=== PATIENT | female | born 1965 | race Caucasian/White ===

== ENCOUNTER 2020-06-16 14:24 | Emergency (ER) | payer MEDICARE ==
[2020-06-16] MEDS ORDERED: Ativan 0.5 MG PO ONE (14:31)
[2020-06-16] MEDS ORDERED: Ativan 1 MG ONE (14:41)
[2020-06-16] MEDS ORDERED: Ativan 1 MG PO ONE (14:44)
--- NOTE | 2020-06-16 14:55 | XRAY ---
Indication: Confusion. Vomiting. Multiple contiguous axial images obtained through the head without contrast. Comparison: None Normal appearing brain parenchyma, ventricles, and bony calvarium. Visualized paranasal sinuses and mastoid air cells are clear. Impression: Normal CT head without contrast exam.
[2020-06-16 14:57] LABS: Absolute Neutrophil Ct (ANC) 5.55 (1.4-6.9); BASOPHIL % 0.3 % (0.0-0.4); Basophil (Absolute #) 0.03 (0-0.4); Eosinophil % 3.3 % (0.00-5.0); Eosinophil (Absolute #) 0.33 (0-0.5); Hematocrit 40.2 % (35-47); Hemoglobin 12.4 gm/dl (12.0-16.0); Lymphocyte (Absolute #) 3.44 (1.0-4.6); Lymphocytes % 34.9 % (24.0-44.0); Mean Cell Volume 94.8 fl (78-100); Mean Corpuscular Hemoglobin 29.2 pg (26-32); Mean Corpuscular Hgb Concent. 30.8 g/dl (32-36); Mean Platelet Volume 8.1 fl (7.5-11.0); Monocyte (Absolute #) 0.52 (0.0-1.3); Monocytes % 5.3 % (0.0-12.0); Neutrophil % 56.2 % (36.0-66.0); Platelet Count 256 K/mm3 (150-450); Red Blood Count 4.24 M/mm3 (4.1-5.4); Red Cell Distribution Width 13.2 % (11.5-14.0); White Blood Count 9.9 K/mm3 (4.0-10.5)
--- NOTE | 2020-06-16 14:57 | XRAY ---
Indication: Vomiting. Pneumonia. Comparison: February 26, 2018. PA/lateral chest again demonstrates normal heart and lungs with incidental right base calcified granuloma. Bony thorax intact again with distal left clavicle resection. Impression: Continued nonacute chest with chronic features.
--- NOTE | 2020-06-16 15:04 | ERPHSYRPT ---
- History of Present Illness Time Seen by Provider: 06/16/20 14:27 Source: patient Exam Limitations: no limitations Patient Subjective Stated Complaint: pt here for dizziness, abd pain after having a nap today. she states she feels better after having a BM, Triage Nursing Assessment: pt alert, arrived per ambulance,face mask in place, skin w/d/p. moves all ext well Physician History: Patient is here for an episode of dizziness and abdominal pain. Patient states that it started after taking a nap this morning. Patient states that she went to the [facility] around 7:15 AM. She went home. She was spending time with her cat fell asleep. Woke up with sudden onset of dizziness with some abdominal pain. No falls no trauma. No fever no chills. Patient denies any Covid-like symptoms. She states that she feels improved now. Had some nonspecific abdominal pain. States that she took a large bowel movement and felt improved. Patient does appear to have a history of mild mental delay. She is at her baseline per nursing staff. Location:generalized Quality: dizziness, abdominal cramping Radiation: none Severity: moderated Duration: today Timing: suddenly after waking up after nap Modifying factors/associated signs and symptoms: feels improved after bowel movement and rest Allergies/Adverse Reactions: No Known Drug Allergies Allergy (Verified 08/19/15 20:56) Home Medications: Citalopram Hydrobromide [Citalopram HBr] 20 mg PO DAILY 05/04/13 [History] Pravastatin Sodium 20 mg PO HS 05/04/13 [History] Polyethylene Glycol 3350 17 gm [Miralax Powder 17GM PACKET] 17 gm PO DAILY PRN PRN 05/31/14 [History] Cyanocobalamin 100 Mcg [Vitamin B-12 100 Mcg] 100 mcg PO DAILY 05/16/20 [History] Metformin HCl 500 mg [Glucophage 500 MG] 500 mg PO DAILY 05/16/20 [History] Ondansetron ODT 4 MG [Zofran Odt 4 mg] 4 mg PO Q6H PRN PRN 05/16/20 [History] estradioL [Estradiol] 1 mg PO DAILY 05/16/20 [History] Hx Tetanus, Diphtheria Vaccination/Date Given: Yes Hx Influenza Vaccination/Date Given: Yes Hx Pneumococcal Vaccination/Date Given: No Immunizations Up to Date: Yes Travel Risk - International Travel Have you traveled outside of the country in past 3 weeks: No - Coronavirus Screening Are you exhibiting any of the following symptoms?: No Close contact with a COVID-19 positive Pt in past 14-21 Days: No - Review of Systems Constitutional: No Fever, No Chills Eyes: No Symptoms Ears, Nose, & Throat: No Symptoms Respiratory: No Cough, No Dyspnea Cardiac: No Chest Pain, No Edema, No Syncope Abdominal/Gastrointestinal: Abdominal Pain, No Nausea, No Vomiting, No Diarrhea Genitourinary Symptoms: No Dysuria Musculoskeletal: No Back Pain, No Neck Pain Skin: No Rash Neurological: Dizziness, No Focal Weakness, No Sensory Changes Psychological: No Symptoms Endocrine: No Symptoms All Other Systems: Reviewed and Negative - Past Medical History Pertinent Past Medical History: Yes Neurological History: Peripheral Neuropathy ENT History: No Pertinent History Cardiac History: High Cholesterol, Hypertension Respiratory History: Sleep Apnea Endocrine Medical History: No Pertinent History Musculoskeletal History: No Pertinent History GI Medical History: Diverticulitis History: No Pertinent History Psycho-Social History: Anxiety Female Reproductive Disorders: Endometriosis Other Medical History: kidney removed 2012, - Past Surgical History Past Surgical History: Yes Neuro Surgical History: No Pertinent History Cardiac: No Pertinent History Respiratory: No Pertinent History Gastrointestinal: Cholecystectomy Genitourinary: No Pertinent History Musculoskeletal: No Pertinent History Female Surgical History: Hysterectomy Other Surgical History: lt kidney removed, shoulder repair, bladder tumor remov ed- dr sun urologist, right knee repair, LEFTKIDNEY REMOVED - Social History Smoking Status: Never smoker Exposure to second hand smoke: No Drug Use: none Patient Lives Alone: Yes - Female History Hx Last Menstrual Period: post - Nursing Vital Signs Nursing Vital Signs: Initial Vital Signs Temperature 96.8 F 06/16/20 14:24 Pulse Rate 107 H 06/16/20 14:24 Respiratory Rate 18 06/16/20 14:24 Blood Pressure 127/99 06/16/20 14:24 O2 Sat by Pulse Oximetry 99 06/16/20 14:24 Pain Scale Pain Intensity 0 - Physical Exam General Appearance: no apparent distress, alert Eye Exam: PERRL/EOMI, eyes nml inspection Ears, Nose, Throat Exam: normal ENT inspection, TMs normal, pharynx normal, moist mucous membranes Neck Exam: normal inspection, non-tender, supple, full range of motion Respiratory Exam: normal breath sounds, lungs clear, No respiratory distress Cardiovascular Exam: regular rate/rhythm, normal heart sounds, normal peripheral pulses Gastrointestinal/Abdomen Exam: soft, normal bowel sounds, No tenderness, No mass Back Exam: normal inspection, normal range of motion, No CVA tenderness, No vertebral tenderness Extremity Exam: normal inspection, normal range of motion, pelvis stable Neurologic Exam: alert, oriented x 3, cooperative, normal mood/affect, nml cerebellar function, nml station & gait, sensation nml, No motor deficits Skin Exam: normal color, warm, dry, No rash Lymphatic Exam: No adenopathy SpO2 Interpretation: normal SpO2: 99 Comments: 06/16/20 15:02 Motor: There is no pronator drift of out-stretched arms. Muscle bulk and tone are normal. Strength is full bilaterally. Reflexes: Reflexes are 2+ and symmetric at the biceps, triceps, knees, and ankles. Plantar responses are flexor. Sensory: Light touch sense are intact in bilateral upper and lower extremities. There is no sign of neglect. Coordination: Rapid alternating movements are intact. There is no dysmetria on [id number] and [id number]. There are no abnormal or extraneous movements. Romberg is absent. Gait/Stance: Posture is normal. Gait is steady with normal steps, base, arm swing, and turning. Heel and toe walking are normal. Tandem gait is normal No obvious deformity, sensation intact, 2+ capillary refill, 2 point tactile discrimination intact. 5 out of 5 strength. Full range of motion without pain. Compartments are soft, nontender. Overlying skin shows no tenting, bruising, ecchymosis. - Course Nursing assessment & vital signs reviewed: Yes EKG Interpreted by Me: Sinus Rhythm Ordered Tests: Active Orders 24 hr Category Date Time Status Clean Catch Urine Specimen STAT Care 06/16/20 14:29 Active EKG-ER Only STAT Care 06/16/20 14:29 Active IV Insertion STAT Care 06/16/20 14:29 Active POCT Glucose Check STAT Care 06/16/20 14:29 Active CHEST 2 VIEWS (PA AND LAT) Stat Exams 06/16/20 14:29 Completed HEAD WITHOUT CONTRAST [CT] Stat Exams 06/16/20 14:29 Completed ACETAMINOPHEN Stat Lab 06/16/20 14:50 Completed CBC W DIFF Stat Lab 06/16/20 14:50 Completed CMP Stat Lab 06/16/20 14:50 Completed ETHYL ALCOHOL Stat Lab 06/16/20 14:50 Completed LITHIUM Stat Lab 06/16/20 14:50 Completed SALICYLATE Stat Lab 06/16/20 14:50 Completed TROPONIN Q3H Lab 06/16/20 14:50 Completed TROPONIN Q3H Lab 06/16/20 17:45 Ordered TROPONIN Q3H Lab 06/16/20 20:45 Ordered TROPONIN Q3H Lab 06/16/20 23:45 Ordered UA W/RFX UR CULTURE Stat Lab 06/16/20 15:32 Completed Urine Triage Profile Stat Lab 06/16/20 15:32 Completed Medication Summary Discontinued Medications Generic Name Dose Route Start Last Admin Trade Name Freq PRN Reason Stop Dose Admin Lorazepam 0.5 mg 06/16/20 14:31 06/16/20 14:44 Ativan 0.5 Mg PO 06/16/20 14:32 Not Given STAT ONE Lorazepam Confirm 06/16/20 14:41 Ativan 1 Mg Administered 06/16/20 14:42 Dose 1 mg .ROUTE .STK-MED ONE Lorazepam 0.5 mg 06/16/20 14:44 06/16/20 14:45 Ativan 1 Mg PO 06/16/20 14:45 0.5 mg STAT ONE Administration Lab/Rad Data: Laboratory Result Diagrams 06/16/20 14:50 06/16/20 14:50 Laboratory Results 06/16/20 06/16/20 06/16/20 Range/Units 15:32 15:32 14:50 WBC (4.0-10.5) K/mm3 RBC (4.1-5.4) M/mm3 Hgb (12.0-16.0) gm/dl Hct (35-47) % MCV (78-100) fl MCH (26-32) pg MCHC (32-36) g/dl RDW (11.5-14.0) % Plt Count (150-450) K/mm3 MPV (7.5-11.0) fl Gran % (36.0-66.0) % Eos # (Auto) (0-0.5) Absolute Lymphs (auto) (1.0-4.6) Absolute Monos (auto) (0.0-1.3) Lymphocytes % (24.0-44.0) % Monocytes % (0.0-12.0) % Eosinophils % (0.00-5.0) % Basophils % (0.0-0.4) % Absolute Granulocytes (1.4-6.9) Basophils # (0-0.4) Sodium (137-145) mmol/L Potassium (3.5-5.1) mmol/L Chloride (98-107) mmol/L Carbon Dioxide (22-30) mmol/L Anion Gap (5-15) MEQ/L BUN (7-17) mg/dL Creatinine (0.52-1.04) mg/dL Estimated GFR ML/MIN Glucose (74-106) mg/dL Calcium (8.4-10.2) mg/dL Total Bilirubin (0.2-1.3) mg/dL AST (14-36) U/L ALT (0-35) U/L Alkaline Phosphatase (38-126) U/L Troponin I < 0.012 (0.000-0.034) ng/mL Serum Total Protein (6.3-8.2) g/dL Albumin (3.5-5.0) g/dL Urine Color YELLOW (YELLOW) Urine Appearance CLEAR (CLEAR) Urine pH 6.0 (5-6) Ur Specific [place] 1.008 (1.005-1.025) Urine Protein NEGATIVE (Negative) Urine Ketones NEGATIVE (NEGATIVE) Urine Blood MODERATE (0-5) Bennett/ul Urine Nitrite NEGATIVE (NEGATIVE) Urine Bilirubin NEGATIVE (NEGATIVE) Urine Urobilinogen NEGATIVE (0-1) mg/dL Ur Leukocyte Esterase NEGATIVE (NEGATIVE) Urine WBC (Auto) 0-2 (0-5) /HPF Urine RBC (Auto) 0-2 (0-2) /HPF U Epithel Cells (Auto) NONE (FEW) /HPF Urine Bacteria (Auto) FEW (NEGATIVE) /HPF Urine Culture Reflexed NO (NO) Urine Glucose NEGATIVE (NEGATIVE) mg/dL Salicylates (2-20) mg/dL Urine Opiates Level NEGATIVE (NEGATIVE) Ur Methadone NEGATIVE (NEGATIVE) Acetaminophen (10-30) ug/ml Urine Barbiturates NEGATIVE (NEGATIVE) Ur Phencyclidine (PCP) NEGATIVE (NEGATIVE) Urine Amphetamine NEGATIVE (NEGATIVE) U Benzodiazepine Level NEGATIVE (NEGATIVE) [place] (0.60-1.20) mmol/L Urine Cocaine NEGATIVE (NEGATIVE) Urine Marijuana (THC) NEGATIVE (NEGATIVE) Ethyl Alcohol (0-10) mg/dL 06/16/20 06/16/20 06/16/20 Range/Units 14:50 14:50 14:50 WBC 9.9 (4.0-10.5) K/mm3 RBC 4.24 (4.1-5.4) M/mm3 Hgb 12.4 (12.0-16.0) gm/dl Hct 40.2 (35-47) % MCV 94.8 (78-100) fl MCH 29.2 (26-32) pg MCHC 30.8 L (32-36) g/dl RDW 13.2 (11.5-14.0) % Plt Count 256 (150-450) K/mm3 MPV 8.1 (7.5-11.0) fl Gran % 56.2 (36.0-66.0) % Eos # (Auto) 0.33 (0-0.5) Absolute Lymphs (auto) 3.44 (1.0-4.6) Absolute Monos (auto) 0.52 (0.0-1.3) Lymphocytes % 34.9 (24.0-44.0) % Monocytes % 5.3 (0.0-12.0) % Eosinophils % 3.3 (0.00-5.0) % Basophils % 0.3 (0.0-0.4) % Absolute Granulocytes 5.55 (1.4-6.9) Basophils # 0.03 (0-0.4) Sodium 136 L (137-145) mmol/L Potassium 3.8 (3.5-5.1) mmol/L Chloride 97 L (98-107) mmol/L Carbon Dioxide 30 (22-30) mmol/L Anion Gap 12.6 (5-15) MEQ/L BUN 14 (7-17) mg/dL Creatinine 0.77 (0.52-1.04) mg/dL Estimated GFR > 60.0 ML/MIN Glucose 140 H (74-106) mg/dL Calcium 9.8 (8.4-10.2) mg/dL Total Bilirubin 0.40 (0.2-1.3) mg/dL AST 24 (14-36) U/L ALT 18 (0-35) U/L Alkaline Phosphatase 119 (38-126) U/L Troponin I (0.000-0.034) ng/mL Serum Total Protein 7.8 (6.3-8.2) g/dL Albumin 4.5 (3.5-5.0) g/dL Urine Color (YELLOW) Urine Appearance (CLEAR) Urine pH (5-6) Ur Specific [place] (1.005-1.025) Urine Protein (Negative) Urine Ketones (NEGATIVE) Urine Blood (0-5) Bennett/ul Urine Nitrite (NEGATIVE) Urine Bilirubin (NEGATIVE) Urine Urobilinogen (0-1) mg/dL Ur Leukocyte Esterase (NEGATIVE) Urine WBC (Auto) (0-5) /HPF Urine RBC (Auto) (0-2) /HPF U Epithel Cells (Auto) (FEW) /HPF Urine Bacteria (Auto) (NEGATIVE) /HPF Urine Culture Reflexed (NO) Urine Glucose (NEGATIVE) mg/dL Salicylates < 1.0 L (2-20) mg/dL Urine Opiates Level (NEGATIVE) Ur Methadone (NEGATIVE) Acetaminophen < 10 L (10-30) ug/ml Urine Barbiturates (NEGATIVE) Ur Phencyclidine (PCP) (NEGATIVE) Urine Amphetamine (NEGATIVE) U Benzodiazepine Level (NEGATIVE) [place] < 0.2 L (0.60-1.20) mmol/L Urine Cocaine (NEGATIVE) Urine Marijuana (THC) (NEGATIVE) Ethyl Alcohol < 10 (0-10) mg/dL - Progress Progress: improved Progress Note: 06/16/20 15:03 STEMI, head bleed, infection, UTI, stroke, anxiety - We'll obtain basic labs, fluids, EKG, troponin, chest x-ray - I feel comfortable with one time negative troponin given symptoms have impro fahad and started greater then 6 hours ago. - EKG shows no ST changes - my read. See full read below. - O2 saturations consistently greater than 95%. - CXR shows no pneumonia, pneumothorax - my read 06/16/20 16:[address] is negative for new stroke, head bleed. Overall patient feeling improved. She states that she is at her baseline. At this point time will discharge patient home. Return here for new or changing symptoms. Plan of care was discussed with patient and all questions answered. The patient is agreeable to be discharged home and both verbal and printed discharge instructions were provided.The patient agreed to seek outpatient follow up as discussed. The patient was given strict instructions to return to the emergency department for worsening symptoms or any other emergent concerns. The patient verbalized understanding. Counseled pt/family regarding: lab results, diagnosis, need for follow-up, rad results - Departure Departure Disposition: Home Clinical Impression: Dizziness, Nausea Condition: Stable Critical Care Time: No Referrals: STACEY ESPINO [Primary Care Provider] -
[2020-06-16 15:11] LABS: ACETAMINOPHEN < 10 ug/ml (10-30); ALBUMIN 4.5 g/dL (3.5-5.0); ALKALINE PHOSPHATASE 119 U/L (38-126); ANION GAP 12.6 MEQ/L (5-15); BLOOD UREA NITROGEN 14 mg/dL (7-17); CHLORIDE 97 mmol/L (98-107); Calcium 9.8 mg/dL (8.4-10.2); Carbon Dioxide 30 mmol/L (22-30); Creatinine 1 0.77 mg/dL (0.52-1.04); EST GLOMERULAR FILTRATION RATE > 60.0 ML/MIN; ETHYL ALCOHOL < 10 mg/dL (0-10); Glucose 140 mg/dL (74-106); Potassium 3.8 mmol/L (3.5-5.1); SALICYLATE < 1.0 mg/dL (2-20); SGOT/AST 24 U/L (14-36); SGPT/ALT 18 U/L (0-35); SODIUM 136 mmol/L (137-145); Total Protein 7.8 g/dL (6.3-8.2)
[2020-06-16 15:40] LABS: Appearance CLEAR (CLEAR); Bacteria FEW /HPF (NEGATIVE); Bilirubin NEGATIVE (NEGATIVE); Blood MODERATE Ery/ul (0-5); Glucose NEGATIVE (NEGATIVE); Ketones NEGATIVE (NEGATIVE); Leukocyte Esterase NEGATIVE (NEGATIVE); Nitrite NEGATIVE (NEGATIVE); Protein,Urine Dip NEGATIVE (Negative); RBC 0-2 /HPF (0-2); Specific Gravity 1.008 (1.005-1.025); Urobilinogen NEGATIVE mg/dL (0-1); WBC 0-2 /HPF (0-5)
[2020-06-16 15:55] LABS: Amphetamine,Urine NEGATIVE (NEGATIVE); Barbiturate,Urine NEGATIVE (NEGATIVE); Benzodiazepine,Urine NEGATIVE (NEGATIVE); Cocaine,Urine NEGATIVE (NEGATIVE); Methadone,Urine NEGATIVE (NEGATIVE); Opiate,Urine NEGATIVE (NEGATIVE); PCP,Urine NEGATIVE (NEGATIVE); THC,Urine NEGATIVE (NEGATIVE)
[2020-06-16 16:29] VITALS: BP 117/74; PULSE 78; O2SAT 97
== END 2020-06-16 16:42 | disposition home or self-care (01) ==
LOC: ED 14:24
DX: R42 Dizziness and giddiness (principal); R11.0 Nausea; R10.9 Unspecified abdominal pain; Z79.899 Other long term (current) drug therapy; E78.00 Pure hypercholesterolemia, unspecified; I10 Essential (primary) hypertension
CPT/HCPCS: 36415; 70450; 71046; 80053; 80178; 80307; 81001; 84484; 85025; 93005; 99284; G0480; A9270-GY

== ENCOUNTER 2022-08-01 05:58 | Day surgery (SDC) | payer MEDICARE ==
[2022-08-01] MEDS ORDERED: Lactated Ringers 1,000 ML IV SCH (07:00)
[2022-08-01] MEDS ORDERED: DIPRIVAN 200 MG/20 ML IV ONE (07:08)
[2022-08-01] MEDS ORDERED: Versed 2 MG/2 ML Injection ONE (07:08)
[2022-08-01] MEDS ORDERED: Xylocaine-Mpf 2% 5 Ml Vial ONE (07:08)
--- NOTE | 2022-08-01 08:58 | OP ---
SURGERY DATE/TIME: 08/01/2022 0807 PREOPERATIVE DIAGNOSIS: Anorexia. POSTOPERATIVE DIAGNOSIS: Presumed delayed gastric emptying. PROCEDURE: Diagnostic EGD. SURGEON: Nixon Galindo M.D. ANESTHESIA: MAC by Zain Watson CRNA. ESTIMATED BLOOD LOSS: None. SPECIMENS: None. DESCRIPTION OF PROCEDURE: After informed written consent was obtained, the patient was taken to the endoscopy suite. She was placed in the left lateral decubitus position and a bite block inserted. Anesthesia was titrated to the desired level of consciousness. The endoscope inserted into the posterior oropharynx. Under direct visualization the esophageal mucosa was easily traversed. There was normal esophageal mucosa and the gastroesophageal junction likewise appeared to be normal with crisp Z-line upon entry into the gastric cavity. There was normal rugated gastric mucosa free of any lesions or defects. There was undigested food of moderate amount in the gastric cavity. No other obvious abnormalities were encountered. The pylorus was traversed and the first and second portions of the duodenum had normal mucosal appearance. Upon withdrawal again all mucosal structures appeared normal. The scope was removed. The patient was transferred to the recovery room in good condition. I have discussed the findings with the patient's mother postoperatively suggestive of delayed gastric emptying. I have recommended that she follow up with her primary care physician and discuss dietary modifications with a low residue food diet.
[2022-08-01 09:20] VITALS: BP 128/78; PULSE 90; O2SAT 98
== END 2022-08-01 09:15 | disposition home or self-care (01) ==
LOC: SDC 05:58
PROVIDERS: ATTEND Family Medicine
DX: K30 Functional dyspepsia (principal); R63.0 Anorexia
CPT/HCPCS: J2250; J2704

== ENCOUNTER 2023-09-23 16:23 | Emergency (ER) | payer MEDICARE ==
[2023-09-23 16:43] VITALS: RESP 20; TEMP 98.5; O2SAT 98
--- NOTE | 2023-09-23 16:49 | ERPHSYRPT ---
- History of Present Illness Time Seen by Provider: 09/23/23 16:47 Historian: patient Exam Limitations: no limitations Patient Subjective Stated Complaint: Abdominal pain Triage Nursing Assessment: Patient ambulated back to ED and transferred self to bed. Physician History: Patient is a 58-year-old female presents to our ED for evaluation of left lower quadrant pain for 1 day. Patient has a history of diverticulitis and states that her symptoms are similar. Pain described as an ache that is localized. No radiation. Pain worse with movement and palpation. Pain improved with rest. No associated rectal bleeding. Patient describes loose stools. No vomiting or nausea. No associated chest pain or shortness of breath. Patient otherwise feels well. She voices no other complaints or concerns at this time. Portions of this note were created with voice recognition technology. There may be grammatical, spelling, punctuation or sound alike errors Timing/Duration: yesterday Activities at Onset: none Quality: aching Abdominal Pain Onset Location: LLQ Pain Radiation: no radiation Severity of Pain-Max: moderate Severity of Pain-Current: moderate Modifying Factors: Improves With: palpation Associated Symptoms: diarrhea Previous symptoms: same symptoms as today Allergies/Adverse Reactions: No Known Drug Allergies Allergy (Verified 09/23/23 16:35) Home Medications: Citalopram Hydrobromide [Citalopram HBr] 40 mg PO DAILY 05/04/13 [History] Pravastatin Sodium 40 mg PO HS 05/04/13 [History] Metformin HCl 500 mg [Glucophage 500 MG] 500 mg PO BID 05/16/20 [History] estradioL [Estradiol] 2 mg PO DAILY 05/16/20 [History] Amitriptyline HCl 25 mg [Amitriptyline 25 mg Tablet] 25 mg PO DAILY 07/04/22 [History] Empagliflozin [Jardiance] 20 mg PO DAILY 07/04/22 [History] Glimepiride 2 mg [Amaryl 2 MG] 1 tab PO DAILY 07/31/22 [History] Mecobalamin [B12 Active] 1 tab PO DAILY PRN 07/31/22 [History] Polyethylene Glycol 3350 17 gm [Miralax Powder 17GM PACKET] 17 gm PO DAILY 08/01/22 [History] Hx Tetanus, Diphtheria Vaccination/Date Given: Yes Hx Influenza Vaccination/Date Given: Yes Hx Pneumococcal Vaccination/Date Given: No Immunizations Up to Date: No Travel Risk - International Travel Have you traveled outside of the country in past 3 weeks: No - Emerging Infectious Disease Are you exhibiting symptoms associated with any current EIDs: No - Review of Systems Constitutional: No Symptoms, No Fever, No Chills Eyes: No Symptoms Ears, Nose, & Throat: No Symptoms Respiratory: No Symptoms, No Cough, No Dyspnea Cardiac: No Symptoms, No Chest Pain, No Edema, No Syncope Abdominal/Gastrointestinal: No Symptoms, No Abdominal Pain, No Nausea, No Vomiting, No Diarrhea Genitourinary Symptoms: No Symptoms, No Dysuria Musculoskeletal: No Symptoms, No Back Pain, No Neck Pain Skin: No Symptoms, No Rash Neurological: No Symptoms, No Dizziness, No Focal Weakness, No Sensory Changes Psychological: No Symptoms Endocrine: No Symptoms Hematologic/Lymphatic: No Symptoms Immunological/Allergic: No Symptoms All Other Systems: Reviewed and Negative - Past Medical History Pertinent Past Medical History: Yes Neurological History: Peripheral Neuropathy ENT History: No Pertinent History Cardiac History: High Cholesterol Respiratory History: No Pertinent History Endocrine Medical History: Diabetes Type II, Other Musculoskeletal History: No Pertinent History GI Medical History: Diverticulitis History: Other Psycho-Social History: Anxiety Female Reproductive Disorders: Endometriosis Other Medical History: PATIENT HAS ONE KIDNEY, 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 REPORTS HAD SURGERY ON LEFT KNEE "WAY BACK" FIXING A TEAR. - Social History Smoking Status: Never smoker Exposure to second hand smoke: No Drug Use: none Patient Lives Alone: Yes - Nursing Vital Signs Nursing Vital Signs: Initial Vital Signs Temperature 98.5 F 09/23/23 16:38 Pulse Rate 99 H 09/23/23 16:38 Respiratory Rate 20 09/23/23 16:38 Blood Pressure 163/104 09/23/23 16:38 O2 Sat by Pulse Oximetry 98 09/23/23 16:38 Pain Scale Pain Intensity 5 - Physical Exam General Appearance: no apparent distress, alert Eye Exam: PERRL/EOMI, eyes nml inspection Ears, Nose, Throat Exam: normal ENT inspection, pharynx normal, moist mucous membranes Neck Exam: normal inspection, non-tender, supple, full range of motion Respiratory Exam: normal breath sounds, lungs clear, airway intact, No respiratory distress Cardiovascular Exam: regular rate/rhythm, normal heart sounds, normal peripheral pulses Gastrointestinal/Abdomen Exam: soft, tenderness, other (Tenderness to palpation left lower quadrant.), No mass Back Exam: normal inspection, normal range of motion, No CVA tenderness, No vertebral tenderness Extremity Exam: normal inspection, normal range of motion, pelvis stable Neurologic Exam: alert, oriented x 3, cooperative, normal mood/affect, nml cerebellar function, sensation nml, No motor deficits Skin Exam: normal color, warm, dry Lymphatic Exam: No adenopathy SpO2 Interpretation: normal SpO2: 98 O2 Delivery: Room Air - Course Nursing assessment & vital signs reviewed: Yes - CT Exams Abdomen/Pelvis CT Interpretation: Tele-radiologist Report (Again mild diffuse fecal stasis. Left nephrectomy. Normal appendix. No new acute findings) Ordered Tests: Active Orders 24 hr Category Date Time Status IV Insertion STAT Care 09/23/23 16:44 Active ABDOMEN AND PELVIS W/0 CONTRAS [CT] Stat Exams 09/23/23 16:45 Taken CBC W DIFF Stat Lab 09/23/23 16:55 Completed CMP Stat Lab 09/23/23 16:55 Completed TROPONIN Q4H Lab 09/23/23 16:55 Completed TROPONIN Q4H Lab 09/23/23 20:45 Ordered TROPONIN Q4H Lab 09/24/23 00:45 Ordered UA W/RFX UR CULTURE Stat Lab 09/23/23 16:57 Completed Medication Summary Generic Name Dose Route Start Last Admin Trade Name Freq PRN Reason Stop Dose Admin Sodium Chloride 1,000 mls @ 100 mls/hr 09/23/23 16:45 09/23/23 17:05 Sodium Chloride 0.9% 1000 Ml IV 10/23/23 16:44 100 mls/hr .Q10H MALIA Administration Discontinued Medications Generic Name Dose Route Start Last Admin Trade Name Freq PRN Reason Stop Dose Admin Ketorolac Tromethamine 30 mg 09/23/23 17:08 09/23/23 17:16 Ketorolac Tromethamine 30 Mg/Ml Inj IV 09/23/23 17:09 30 mg STAT ONE Administration Ketorolac Tromethamine Confirm 09/23/23 17:16 Ketorolac Tromethamine 30 Mg/Ml Inj Administered 09/23/23 17:17 Dose 30 mg .ROUTE .[facility] Lab/Rad Data: Laboratory Result Diagrams 09/23/23 16:55 09/23/23 16:55 Laboratory Results 09/23/23 09/23/23 09/23/23 Range/Units 16:57 16:55 16:55 WBC (4.0-10.5) x10^3/uL RBC (4.1-5.4) x10^6/uL Hgb (12.0-16.0) g/dL Hct (35-47) % MCV (78-100) fL MCH (26-32) pg MCHC (32-36) g/dL RDW (11.5-14.0) % Plt Count (150-450) x10^3/uL MPV (7.5-11.0) fL Gran % (36.0-66.0) % Immature Gran % (Auto) (0.00-0.4) % Nucleat RBC Rel Count (0.00-0.1) % Eos # (Auto) (0-0.5) x10^3/uL Immature Gran # (Auto) (0.00-0.03) x10^3u/L Absolute Lymphs (auto) (1.0-4.6) x10^3/uL Absolute Monos (auto) (0.0-1.3) x10^3/uL Absolute Nucleated RBC (0.00-0.01) x10^3u/L Lymphocytes % (24.0-44.0) % Monocytes % (0.0-12.0) % Eosinophils % (0.00-5.0) % Basophils % (0.0-0.4) % Absolute Granulocytes (1.4-6.9) x10^3/uL Basophils # (0-0.4) x10^3/uL Sodium 137 (135-145) mmol/L Potassium 3.9 (3.5-5.1) mmol/L Chloride 103 (98-107) mmol/L Carbon Dioxide 24 (22-30) mmol/L Anion Gap 14.4 (5-15) MEQ/L BUN 10 (7-17) mg/dL Creatinine 0.73 (0.52-1.04) mg/dL Estimated GFR 96.5 ML/MIN Glucose 98 (74-106) mg/dL Calcium 9.7 (8.4-10.2) mg/dL Total Bilirubin 0.50 (0.2-1.3) mg/dL AST 23 (14-36) U/L ALT 15 (0-35) U/L Alkaline Phosphatase 98 (38-126) U/L Troponin I < 0.012 (0.000-0.033) ng/mL Serum Total Protein 8.2 (6.3-8.2) g/dL Albumin 4.5 (3.5-5.0) g/dL Urine Color Yellow (Yellow) Urine Appearance Clear (Clear) Urine pH 6.5 (4.6-8.0) Ur Specific [place] <=1.005 (1.005-1.030) Urine Protein Negative (Negative) Urine Glucose (UA) >=1000 A (Negative) mg/dL Urine Ketones Trace A (Negative) Urine Blood Moderate A (Negative) Urine Nitrite Negative (Negative) Urine Bilirubin Negative (Negative) Urine Urobilinogen 0.2 (0.2) mg/dL Ur Leukocyte Esterase Negative (Negative) U Hyaline Cast (Auto) NONE SEEN (0-2) /LPF Urine Microscopic RBC 3-5 (0-5) /HPF Urine Microscopic WBC 0-2 (0-5) /HPF Ur Epithelial Cells Rare (None Seen) /HPF Urine Bacteria Rare A (None Seen) /HPF Urine Culture Reflexed NO (NO) 09/23/23 Range/Units 16:55 WBC 9.5 (4.0-10.5) x10^3/uL RBC 4.22 (4.1-5.4) x10^6/uL Hgb 12.6 (12.0-16.0) g/dL Hct 38.6 (35-47) % MCV 91.5 (78-100) fL MCH 29.9 (26-32) pg MCHC 32.6 (32-36) g/dL RDW 12.9 (11.5-14.0) % Plt Count 213 (150-450) x10^3/uL MPV 8.2 (7.5-11.0) fL Gran % 65.4 (36.0-66.0) % Immature Gran % (Auto) 0.4 (0.00-0.4) % Nucleat RBC Rel Count 0.0 (0.00-0.1) % Eos # (Auto) 0.08 (0-0.5) x10^3/uL Immature Gran # (Auto) 0.04 H (0.00-0.03) x10^3u/L Absolute Lymphs (auto) 2.65 (1.0-4.6) x10^3/uL Absolute Monos (auto) 0.47 (0.0-1.3) x10^3/uL Absolute Nucleated RBC 0.00 (0.00-0.01) x10^3u/L Lymphocytes % 28.0 (24.0-44.0) % Monocytes % 5.0 (0.0-12.0) % Eosinophils % 0.8 (0.00-5.0) % Basophils % 0.4 (0.0-0.4) % Absolute Granulocytes 6.20 (1.4-6.9) x10^3/uL Basophils # 0.04 (0-0.4) x10^3/uL Sodium (135-145) mmol/L Potassium (3.5-5.1) mmol/L Chloride (98-107) mmol/L Carbon Dioxide (22-30) mmol/L Anion Gap (5-15) MEQ/L BUN (7-17) mg/dL Creatinine (0.52-1.04) mg/dL Estimated GFR ML/MIN Glucose (74-106) mg/dL Calcium (8.4-10.2) mg/dL Total Bilirubin (0.2-1.3) mg/dL AST (14-36) U/L ALT (0-35) U/L Alkaline Phosphatase (38-126) U/L Troponin I (0.000-0.033) ng/mL Serum Total Protein (6.3-8.2) g/dL Albumin (3.5-5.0) g/dL Urine Color (Yellow) Urine Appearance (Clear) Urine pH (4.6-8.0) Ur Specific [place] (1.005-1.030) Urine Protein (Negative) Urine Glucose (UA) (Negative) mg/dL Urine Ketones (Negative) Urine Blood (Negative) Urine Nitrite (Negative) Urine Bilirubin (Negative) Urine Urobilinogen (0.2) mg/dL Ur Leukocyte Esterase (Negative) U Hyaline Cast (Auto) (0-2) /LPF Urine Microscopic RBC (0-5) /HPF Urine Microscopic WBC (0-5) /HPF Ur Epithelial Cells (None Seen) /HPF Urine Bacteria (None Seen) /HPF Urine Culture Reflexed (NO) - Progress Progress: improved Progress Note: 58-year-old female presents to our ED for evaluation of left lower quadrant pain. Physical exam reveals tenderness to the left lower quadrant. Otherwise nonremarkable physical exam. Vital stable. Laboratory workup nonremarkable. CT scan negative for acute findings. Mild diffuse fecal stasis observed. Left nephrectomy and normal appendix. No new acute findings. Patient reassessed. She is comfortable. No active pain. No indication for further workup will discharge home. Patient agrees to follow-up with her primary care doctor within 48 hours for evaluation. Portions of this note were created with voice recognition technology. There may be grammatical, spelling, punctuation or sound alike errors Complexity problem addressed is moderate acute complicated. No critical care time. Complex of data reviewed and analyzed is moderate. Test ordered test reviewed results analyzed and correlated clinically with history and physical exam. Risk of complication and or risk morbidity/mortality patient management is low. Vital stable. Time spent to discharge patient approximately 15 minutes. Plan of care established for shared decision making. No social determinants of health present impede follow-up. Portions of this note were created with voice recognition technology. There may be grammatical, spelling, punctuation or sound alike errors 09/23/23 18:29 Counseled pt/family regarding: lab results, diagnosis, need for follow-up, rad results - Departure Departure Disposition: Home Clinical Impression: Abdominal pain, Fecal stasis, Glucosuria, Hematuria Condition: Stable Critical Care Time: No Referrals: JUNE CALLAHAN NP [Primary Care Provider] - Follow up/PCP as directed Additional Instructions: Discharge/Care Plan SULTANA LOPEZ was seen on 09/23/23 in the Emergency Room. The patient was counseled regarding Diagnosis,Lab results, Imaging studies, need for follow up and when to return to the Emergency Room. Prescriptions given: Discharge Note I have spoken with the patient and/or caregivers. I have explained the patient's condition, diagnosis and treatment plan based on the information available to me at this time. I have answered the patient's and/or caregiver's questions and addressed any concerns. The patient and/or caregivers have as good understanding of the patient's diagnosis, condition and treatment plan as can be expected at this point. The vital signs have been stable. The patient's condition is stable and appropriate for discharge from the emergency department. The patient will pursue further outpatient evaluation with the primary care physician or other designated or consulting physician as outlined in the discharge instructions. The patient and/or caregivers are agreeable to this plan of care and follow-up instructions have been explained in detail. The patient and/or caregivers have received these instruction. The patient/and or caregivers are aware that any significant change in condition or worsening of symptoms should prompt an immediate return to this or the closest emergency department or call 911.
[2023-09-23 17:03] LABS: BASOPHIL % 0.4 % (0.0-0.4); Basophil (Absolute #) 0.04 x10^3/uL (0-0.4); Eosinophil % 0.8 % (0.00-5.0); Eosinophil (Absolute #) 0.08 x10^3/uL (0-0.5); Hematocrit 38.6 % (35-47); Hemoglobin 12.6 g/dL (12.0-16.0); IMMATURE GRAN # 0.04 x10^3u/L (0.00-0.03); IMMATURE GRAN % 0.4 % (0.00-0.4); Lymphocyte (Absolute #) 2.65 x10^3/uL (1.0-4.6); Mean Cell Volume 91.5 fL (78-100); Mean Corpuscular Hemoglobin 29.9 pg (26-32); Mean Corpuscular Hgb Concent. 32.6 g/dL (32-36); Mean Platelet Volume 8.2 fL (7.5-11.0); Monocyte (Absolute #) 0.47 x10^3/uL (0.0-1.3); Neutrophil % 65.4 % (36.0-66.0); Platelet Count 213 x10^3/uL (150-450); Red Blood Count 4.22 x10^6/uL (4.1-5.4); Red Cell Distribution Width 12.9 % (11.5-14.0); White Blood Count 9.5 x10^3/uL (4.0-10.5)
[2023-09-23] MEDS ORDERED: Sodium Chloride 0.9% 1000 ML 1,000 ML ONE (17:04)
[2023-09-23] MEDS: Sodium Chloride 0.9% 1000 ML 1,000 ML IV SCH (17:05)
[2023-09-23 17:15] LABS: ALBUMIN 4.5 g/dL (3.5-5.0); ANION GAP 14.4 MEQ/L (5-15); BILIRUBIN,TOTAL 0.5 mg/dL (0.2-1.3); Calcium 9.7 mg/dL (8.4-10.2); Creatinine 1 0.73 mg/dL (0.52-1.04); EST GLOMERULAR FILTRATION RATE 96.5 ML/MIN; Potassium 3.9 mmol/L (3.5-5.1); Total Protein 8.2 g/dL (6.3-8.2)
[2023-09-23] MEDS: TORAdol 30 mg Injection IV ONE (17:16)
[2023-09-23] MEDS ORDERED: TORAdol 30 mg Injection ONE (17:16)
[2023-09-23 17:23] LABS: ADD URINE CULTURE? NO (NO); Appearance Clear (Clear); Bacteria Rare /HPF (None Seen); Bilirubin Negative (Negative); Blood Moderate (Negative); Epithelial Cells Rare /HPF (None Seen); Glucose, Urine >=1000 mg/dL (Negative); Hyaline Casts NONE SEEN /LPF (0-2); Ketones Trace (Negative); Leukocyte Esterase Negative (Negative); Nitrite Negative (Negative); Ph 6.5 (4.6-8.0); Protein,Urine Dip Negative (Negative); Specific Gravity <=1.005 (1.005-1.030); Urobilinogen 0.2 mg/dL (0.2); WBC 0-2 /HPF (0-5)
[2023-09-23 18:54] VITALS: BP 119/68; PULSE 87
--- NOTE | 2023-09-24 08:37 | XRAY ---
Indication: Groin pain 3 days. Multiple contiguous axial images obtained through the abdomen and pelvis without contrast. Comparison: July 23, 2022 Lung bases remain clear again with incidental right base calcified granuloma. Heart not enlarged. Noncontrasted stomach and bowel loops nonobstructed again with normal appendix. Mild diffuse scattered colonic fecal debris. Aysha stable left pelvis soft tissue mass with surgical clips dating back to January 28, 2018 presumed postsurgical. Again cholecystectomy, hysterectomy, and left total nephrectomy. No free fluid/air. Remaining liver, pancreas, spleen, adrenal glands, right kidney, right ureter, bladder, and aorta are unremarkable for noncontrast exam. 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 No ventral or inguinal hernias. Impression: 1. Again mild diffuse fecal stasis, right lung base calcified granuloma, postsurgical changes, and L5 spondylolysis without listhesis. 2. Remaining CT abdomen/pelvis without contrast exam continues to be negative.
== END 2023-09-23 18:58 | disposition home or self-care (01) ==
LOC: ED 16:23
DX: R10.32 Left lower quadrant pain (principal); K59.89 Other specified functional intestinal disorders; R81 Glycosuria; R31.9 Hematuria, unspecified; E78.5 Hyperlipidemia, unspecified; E11.42 Type 2 diabetes mellitus with diabetic polyneuropathy; Z79.84 Long term (current) use of oral hypoglycemic drugs; Z79.899 Other long term (current) drug therapy
CPT/HCPCS: 36000; 36415; 74176; 80053; 81001; 84484; 85025; 96374; 99284; J1885